=== PATIENT | male | born 1975 | race Caucasian/White ===

== ENCOUNTER 2016-10-11 09:37 | Emergency (ER) | payer OTHER ==
[~2016-10-11 09:37] MED LIST: /AUGM875TA; EXCEDRINE MIGRAINE; NITR0.4S; [UNRECOGNIZED DRUG - OTHER]
[2016-10-11] MEDS ORDERED: KETOROLAC 30 MG/ML VIAL (J1885) As Ordered ONE (11:45)
--- NOTE | 2016-10-11 15:12 | REP ---
MRI LUMBAR SPINE WITHOUT CONTRAST: HISTORY: Back pain. Decreased signal intensity on T2-weighted images is present in the L2-3 through L5-S1 intervertebral discs. The discs are decreased in height. These findings are consistent with disc degeneration. A diffuse disc bulge is present at the L1-2 level. There is hypertrophy of the ligamenta flava and posterior articulating facets. These findings produce minimal central canal stenosis. The L1 nerves exit the neural foramina without compression. A diffuse disc bulge is present at the L2-3 level. There is hypertrophy of the ligamenta and posterior articulating facets. These findings produce mild central canal stenosis. A small left intraforaminal disc protrusion is present. There is compression of the left L2 nerve in the neural foramen. The right L2 nerve exits the neural foramen without compression. A diffuse disc bulge is present at the L3-4 level. There is hypertrophy of the ligamenta flava and posterior articulating facets. These findings produce severe central canal stenosis. A small left intraforaminal disc protrusion is present. There is posterolateral displacement of the left L3 nerve distal to the neural foramen. The right L3 nerve exits the neural foramen without compression. A diffuse disc bulge and small central disc extrusion are present at the L4-5 level. There is inferior migration of disc material. There is hypertrophy of the ligamenta flava and posterior articulating facets. These findings produce moderate central canal stenosis. The L4 nerves exit the neural foramina without compression. A diffuse disc bulge and small disc extrusion central and eccentric to the left are present at the L5-S1 level. There is inferior migration of disc material. There is minimal compression of the thecal sac and left S1 nerve as it exits the thecal sac. There is hypertrophy of the posterior articulating facets. The L5 nerves exit the neural foramina without compression. The conus medullaris is normal in appearance terminating at the level of the T12-L1 intervertebral disc. Increased signal intensity on T2-weighted images is present in endplates of the L4 through S1 vertebral bodies. This represents degenerative change. IMPRESSION: 1. Minimal central canal stenosis at the L1-2 level secondary to disc bulge, ligamentous and facet hypertrophy. 2. Mild central canal stenosis at the L2-3 level secondary to disc bulge, ligamentous and facet hypertrophy. A small left intraforaminal disc protrusion is present. There is compression of the left L2 nerve in the neural foramen. 3. Severe central canal stenosis at the L3-4 level secondary to disc bulge, ligamentous and facet hypertrophy. A small left intraforaminal disc protrusion is present. There is posterolateral displacement of the left L3 nerve distal to the neural foramen. 4. Moderate central canal stenosis at the L4-5 level secondary to disc bulge, disc extrusion, ligamentous and facet hypertrophy. 5. Diffuse disc bulge and small disc extrusion at the L5-S1 level with minimal compression of the thecal sac and left S1 nerve as it exits the thecal sac. Signed by Alexey Torres MD 10/11/2016 03:15 P
--- NOTE | 2016-10-11 16:12 | EDDOCDS ---
Physician Documentation [facility] Name: Edin Quigley Age: 41 yrs Sex: Male : 1975 Arrival Date: 10/11/2016 Time: 09:37 Bed I3 / M3 Private MD: Howie Melendez MD Disposition: 10/11/16 16:02 Discharged to Home/Self Care. Impression: Spinal stenosis, lumbar region - herniated disc L5-S1, Low back pain. - Condition is Stable. - Discharge Instructions: Back Pain, Adult, Herniated Disk, Sciatica. - Prescriptions for Ibuprofen 800 mg Oral Tablet - take 1 tablet by ORAL route every 8 hours As needed take with food; 30 tablet. [place] 5- 325 mg Oral Tablet - take 1 tablet by ORAL route every 6 hours As needed MDD: 4 tabs; 20 tablet. Cyclobenzaprine 10 mg Oral Tablet - take 1 tablet by ORAL route At bedtime As needed; 10 tablet. - Medication Reconciliation, Local Pharmacy Hours, Work Release Form - 5 day form. - Follow up: Andrea Weeks; When: Call to arrange an appointment; Reason: Recheck today's complaints, Continuance of care. Follow up: Ebony Merritt; When: As needed; Reason: Recheck today's complaints, Continuance of care. Follow up: Emergency Department; When: As needed; Reason: Worsening of conditions, severe pain, severe weakness of leg, numbness of groin, bowel or bladder dysfunction. - Problem is an acute exacerbation. - Symptoms have improved. Historical: - Allergies: No known drug Allergies; - Home Meds: 1. Excedrin Extra Strength 250-250-65 mg Oral tab 2 tablets (Last dose: 10/10/2016 19:00) - PMHx: Chronic Back pain; - PSHx: none; - Social history: Smoking status: Patient uses tobacco products, heavy tobacco smoker. No barriers to communication noted, The patient speaks fluent Montenegrin, Speaks appropriately for age. - Family history: Not pertinent. - : The pt / caregiver states he / she is not on anticoagulants. Home medication list is obtained from the patient. - Exposure Risk Screening:: None identified. Vital Signs: 10/11 09:39 BP 149 / 70 RA Sitting (auto/reg); Pulse 73; Resp 18; Temp 98.2(O); Pulse Ox 99% on jrd R/A; Weight 76.2 kg / 167.99 lbs (R); Height 5 ft. 9 in. (175.26 cm) (R); Pain 10/10; 15:01 BP 119 / 61; Pulse 58; Resp 20; Temp 95.1(T); Pulse Ox 99% on R/A; Pain 3/10; dsf 09:39 Body Mass Index 24.81 (76.20 kg, 175.26 cm) jrd MDM: 11:01 Undress patient appropriately for examination ordered. ar2 11:01 Misc. Nursing Order ordered. ar2 11:22 Financial registration complete. lg 11:26 IV Saline Lock ordered. ar2 11:26 ketorolac 30 mg IVP once ordered. ar2 11:26 Diazepam 5 mg IVP once ordered. ar2 11:26 MRI Screening Tool - Place on chart, inform RN ordered. ar2 11:27 -MRI-Spine, Lumbar without contrast Ordered. EDMS 11:50 MRI Screening Tool - Place on chart, inform RN complete. jc4 13:25 [facility] Payment Agreement was scanned into [employer] and attached to record. lg Administered Medications: 11:47 Drug: Diazepam 5 mg [diazepam 5 mg/mL injection syringe (1 mL)] Route: IVP; Site: left jc4 antecubital; 11:50 Drug: ketorolac 30 mg [ketorolac 30 mg/mL (1 mL) injection solution (1 mL)] Route: IVP; jc4 Site: left antecubital; Signatures: Dispatcher [employer] EDOK Royal Richardson, Reg Reg lg Julio C Edwards RN RN mlb1 Colt Ruiz PA-C PA-C ar2 Karla Rudd RN RN jc4 Mary Penaloza RN RN dsf The chart was reviewed and I authenticate all verbal orders and agree with the evaluation and treatment provided.Attachments: 13:25 [facility] Payment Agreement lg MTDD
--- NOTE | 2016-10-11 16:12 | EDDOCDS ---
Nurse's Notes [facility] Name: Edin Quigley Age: 41 yrs Sex: Male : 1975 Arrival Date: 10/11/2016 Time: 09:37 Bed I3 / M3 Private MD: Howie Melendez MD Diagnosis: Spinal stenosis, lumbar region-herniated disc L5-S1;Low back pain Presentation: 10/11 09:49 Presenting complaint: Patient states: "my back" has been getting worse. On going every mlb1 day for years per . While at work today pain became unbearable. Pain radiating from back into left buttock and out leg and toes. Acute neurological deficits are not present. Mechanism of Injury: No Mechanism of Injury. Adult Sepsis Screening: The patient does not have new or worsening altered mentation. Patient's respiratory rate is less than 22. Systolic blood pressure is greater than 100. Patient has a qSOFA score of 0- Negative Sepsis Screen. Suicide/Homicide risk assessment- the patient denies having any suicidal and/or homicidal ideations and does not present with any other emotional, behavioral or mental health complaints. Status: Patient is not a auto service representative or dependent. Transition of care: patient was not received from another setting of care. 09:49 Acuity: LELO Level 4 mlb1 09:49 Method Of Arrival: Walkin/Carried/Asstd mlb1 Triage Assessment: 09:52 General: Appears in no apparent distress, Behavior is appropriate for age, cooperative. mlb1 Pain: Location: back Pain currently is 10 out of 10 on a pain scale. Quality of pain is described as shooting, Is continuous. HIV screening NA for this visit Offered previously. Musculoskeletal: Reports unable to straighten back. Historical: - Allergies: No known drug Allergies; - Home Meds: 1. Excedrin Extra Strength 250-250-65 mg Oral tab 2 tablets (Last dose: 10/10/2016 19:00) - PMHx: Chronic Back pain; - PSHx: none; - Social history: Smoking status: Patient uses tobacco products, heavy tobacco smoker. No barriers to communication noted, The patient speaks fluent Peruvian, Speaks appropriately for age. - Family history: Not pertinent. - : The pt / caregiver states he / she is not on anticoagulants. Home medication list is obtained from the patient. - Exposure Risk Screening:: None identified. Screenin:48 Screening information is obtained from the patient. Fall risk: No risks identified. jc4 Assistance ADL's: requires no assistance with activities of daily living. Abuse/DV Screen: The patient / caregiver reports he/she is: not in a situation that causes fear, pain or injury. Nutritional screening: No deficits noted. Advance Directives: Currently, there is no health care proxy. There is no active DNR order. There is no living will. There is no Power of Receptionist Telephone Operator. home support is adequate. Assessment: 11:48 General: Appears uncomfortable, Behavior is anxious. Pain:. ja5 11:50 General: Appears uncomfortable. Pain: Pain currently is 10 out of 10 on a pain scale. jc4 Neurological: Level of Consciousness is awake, alert, Oriented to person, place, time. Respiratory: Airway is patent Respiratory effort is even, unlabored, Respiratory pattern is regular, symmetrical. Derm: Skin is pink, warm & dry. Musculoskeletal: Circulation, motion, and sensation intact Reports pain in low back area. 14:17 General: Pt remains in MRI at this time. jc4 15:02 Adult Sepsis Screening: The patient does not have new or worsening altered mentation. dsf Patient's respiratory rate is less than 22. Systolic blood pressure is greater than 100. Patient has a qSOFA score of 0- Negative Sepsis Screen. General: Appears in no apparent distress, comfortable, Behavior is appropriate for age, cooperative. Pain: Location: low back area, left low back, left mid back and right mid back Pain currently is 3 out of 10 on a pain scale. Quality of pain is described as sharp. Neurological: Level of Consciousness is awake, alert, Oriented to person, place, time. Cardiovascular: No deficits noted. Respiratory: No deficits noted. Derm: Skin is pink, warm & dry. 16:10 General: Appears in no apparent distress, comfortable, Behavior is appropriate for age, dsf cooperative. Pain: Pain currently is 3 out of 10 on a pain scale. Neurological: Level of Consciousness is awake, alert. Cardiovascular: Capillary refill < 3 seconds. Respiratory: Airway is patent Respiratory effort is even, unlabored, Respiratory pattern is regular, symmetrical. Derm: Skin is pink, warm & dry. Vital Signs: 09:39 BP 149 / 70 RA Sitting (auto/reg); Pulse 73; Resp 18; Temp 98.2(O); Pulse Ox 99% on jrd R/A; Weight 76.2 kg (R); Height 5 ft. 9 in. (175.26 cm) (R); Pain 10/10; 15:01 BP 119 / 61; Pulse 58; Resp 20; Temp 95.1(T); Pulse Ox 99% on R/A; Pain 3/10; dsf 09:39 Body Mass Index 24.81 (76.20 kg, 175.26 cm) [facility] Vitals: 09:39 Log In Time: October 11, 2016 at 09:20. d ED Course: 09:39 Patient visited by Dillan Pacheco PCA. jrd 09:39 Howie Melendez is Private Physician. jrd 09:39 Patient moved to Waiting jrd 09:41 Patient visited by Dillan Pacheco PCA. jrd 09:41 Patient moved to Pre RCE jrd 09:51 Triage Initiated mlb1 10:42 Patient moved to Triage 1 ct3 10:57 Colt Ruiz PA-C is PHCP. ar2 10:57 Srinivasa Koroma MD is Attending Physician. ar2 10:57 Patient visited by Colt Ruiz PA-C. ar2 11:04 Patient moved to PR2 / 26 ct3 11:31 Patient moved to PR1 / 25 ttb 11:32 Karla Rudd, RN is Primary Nurse. ttb 11:32 Kortney Gillis,RN is Primary Nurse. ttb 11:32 Patient moved to I3 / M3 ttb 11:48 The patient / caregiver is instructed regarding the plan of care and ED course. jc4 11:48 Inserted saline lock: 20 gauge in left antecubital area. ja5 11:49 Patient visited by Kortney Gillis,JAVI. ja5 13:08 Patient moved to MRI dsf 13:25 [facility] Payment Agreement was scanned into [employer] and attached to record. lg 15:01 Patient moved to I3 / M3 dsf 15:02 Patient visited by Mary Penaloza,RN. dsf 15:33 -MRI-Spine, Lumbar without contrast Returned. EDMS 16:00 Andrea Weeks is Referral Physician. ar2 16:01 Ebony Merritt is Referral Physician. ar2 16:03 No procedures done that require assistance. dsf 16:10 Discontinued lock intact, bleeding controlled, pressure dressing applied, No dsf redness/swelling at site. Administered Medications: 11:47 Drug: Diazepam 5 mg [diazepam 5 mg/mL injection syringe (1 mL)] Route: IVP; Site: left jc4 antecubital; 11:50 Drug: ketorolac 30 mg [ketorolac 30 mg/mL (1 mL) injection solution (1 mL)] Route: IVP; jc4 Site: left antecubital; Order Results: Radiology Order: -MRI-Spine, Lumbar without contrast Test: -MRI-Spine, Lumbar without contrast REASON FOR EXAMINATION: back pain, weakness/numbness left leg; MRI LUMBAR SPINE WITHOUT CONTRAST:; ; HISTORY: Back pain.; ; Decreased signal intensity on T2-weighted images is present in the L2-3 through; L5-S1 intervertebral discs. The discs are decreased in height. These findings are; consistent with disc degeneration.; ; A diffuse disc bulge is present at the L1-2 level. There is hypertrophy of the; ligamenta flava and posterior articulating facets. These findings produce minimal; central canal stenosis. The L1 nerves exit the neural foramina without; compression.; ; A diffuse disc bulge is present at the L2-3 level. There is hypertrophy of the; ligamenta and posterior articulating facets. These findings produce mild central; canal stenosis. A small left intraforaminal disc protrusion is present. There is; compression of the left L2 nerve in the neural foramen. The right L2 nerve exits; the neural foramen without compression.; ; A diffuse disc bulge is present at the L3-4 level. There is hypertrophy of the; ligamenta flava and posterior articulating facets. These findings produce severe; central canal stenosis. A small left intraforaminal disc protrusion is present.; There is posterolateral displacement of the left L3 nerve distal to the neural; foramen. The right L3 nerve exits the neural foramen without compression.; ; A diffuse disc bulge and small central disc extrusion are present at the L4-5; level. There is inferior migration of disc material. There is hypertrophy of the; ligamenta flava and posterior articulating facets. These findings produce; moderate central canal stenosis. The L4 nerves exit the neural foramina without; compression.; ; A diffuse disc bulge and small disc extrusion central and eccentric to the left; are present at the L5-S1 level. There is inferior migration of disc material.; There is minimal compression of the thecal sac and left S1 nerve as it exits the; thecal sac. There is hypertrophy of the posterior articulating facets. The L5; nerves exit the neural foramina without compression.; ; The conus medullaris is normal in appearance terminating at the level of the; T12-L1 intervertebral disc. Increased signal intensity on T2-weighted images is; present in endplates of the L4 through S1 vertebral bodies. This represents; degenerative change.; ; IMPRESSION:; ; 1. Minimal central canal stenosis at the L1-2 level secondary to disc bulge,; ligamentous and facet hypertrophy.; ; 2. Mild central canal stenosis at the L2-3 level secondary to disc bulge,; ligamentous and facet hypertrophy. A small left intraforaminal disc protrusion is; present. There is compression of the left L2 nerve in the neural foramen.; ; 3. Severe central canal stenosis at the L3-4 level secondary to disc bulge,; ligamentous and facet hypertrophy. A small left intraforaminal disc protrusion is; present. There is posterolateral displacement of the left L3 nerve distal to the; neural foramen.; ; 4. Moderate central canal stenosis at the L4-5 level secondary to disc bulge,; disc extrusion, ligamentous and facet hypertrophy.; ; 5. Diffuse disc bulge and small disc extrusion at the L5-S1 level with minimal; compression of the thecal sac and left S1 nerve as it exits the thecal sac.; ; ; Signed by; Alexey Torres MD 10/11/2016 03:15 P; Outcome: 15:02 MRI Study completed. dsf 16:02 Discharge ordered by Provider. ar2 16:10 Discharge Assessment: Patient awake, alert and oriented x 3. No cognitive and/or dsf functional deficits noted. Patient verbalized understanding of disposition instructions. patient administered narcotics - yes. Pt provided with safe discharge. The following High Risk Discharge criteria are identified: None. Discharged to home ambulatory, with significant other. Condition: stable. Discharge instructions given to patient, significant other, Instructed on discharge instructions, follow up and referral plans. medication usage, no driving heavy equipment, Demonstrated understanding of instructions, medications, Pt was receptive of discharge instructions/ teaching. Prescriptions given X 3, Work note provided to patient. Property sent home with patient. 16:11 Patient left the ED. dsf Signatures: Dispatcher [employer] EDRoyal Akhtar, Norbert Reg lg Jerry, Julio C Ruff, RN RN mlb1 Colt Ruiz PA-C PAKarla Preston, RN RN jc4 Marry Rogers, DEPARTMENT HEAD DEPARTMENT HEAD ct3 Mary Penaloza,RN RN dsf Kimberlee Patel RN RN ttb Dillan Pacheco, DEPARTMENT HEAD DEPARTMENT HEAD jrd Kortney Gillis,RN RN ja5 MTDD
--- NOTE | 2016-10-13 17:13 | EDDOCDS ---
Nurse's Notes [facility] Name: Edin Quigley Age: 41 yrs Sex: Male : 1975 Arrival Date: 10/11/2016 Time: 09:37 Bed I3 / M3 Private MD: Howie Melendez MD Diagnosis: Spinal stenosis, lumbar region-herniated disc L5-S1;Low back pain Presentation: 10/11 09:49 Presenting complaint: Patient states: "my back" has been getting worse. On going every mlb1 day for years per . While at work today pain became unbearable. Pain radiating from back into left buttock and out leg and toes. Acute neurological deficits are not present. Mechanism of Injury: No Mechanism of Injury. Adult Sepsis Screening: The patient does not have new or worsening altered mentation. Patient's respiratory rate is less than 22. Systolic blood pressure is greater than 100. Patient has a qSOFA score of 0- Negative Sepsis Screen. Suicide/Homicide risk assessment- the patient denies having any suicidal and/or homicidal ideations and does not present with any other emotional, behavioral or mental health complaints. Status: Patient is not a director patient financial services or dependent. Transition of care: patient was not received from another setting of care. 09:49 Acuity: LELO Level 4 mlb1 09:49 Method Of Arrival: Walkin/Carried/Asstd mlb1 Triage Assessment: 09:52 General: Appears in no apparent distress, Behavior is appropriate for age, cooperative. mlb1 Pain: Location: back Pain currently is 10 out of 10 on a pain scale. Quality of pain is described as shooting, Is continuous. HIV screening NA for this visit Offered previously. Musculoskeletal: Reports unable to straighten back. Historical: - Allergies: No known drug Allergies; - Home Meds: 1. Excedrin Extra Strength 250-250-65 mg Oral tab 2 tablets (Last dose: 10/10/2016 19:00) - PMHx: Chronic Back pain; - PSHx: none; - Social history: Smoking status: Patient uses tobacco products, heavy tobacco smoker. No barriers to communication noted, The patient speaks fluent [place]ib[place]ian, Speaks appropriately for age. - Family history: Not pertinent. - : The pt / caregiver states he / she is not on anticoagulants. Home medication list is obtained from the patient. - Exposure Risk Screening:: None identified. Screenin:48 Screening information is obtained from the patient. Fall risk: No risks identified. jc4 Assistance ADL's: requires no assistance with activities of daily living. Abuse/DV Screen: The patient / caregiver reports he/she is: not in a situation that causes fear, pain or injury. Nutritional screening: No deficits noted. Advance Directives: Currently, there is no health care proxy. There is no active DNR order. There is no living will. There is no Power of Household Cook. home support is adequate. Assessment: 11:48 General: Appears uncomfortable, Behavior is anxious. Pain:. ja5 11:50 General: Appears uncomfortable. Pain: Pain currently is 10 out of 10 on a pain scale. jc4 Neurological: Level of Consciousness is awake, alert, Oriented to person, place, time. Respiratory: Airway is patent Respiratory effort is even, unlabored, Respiratory pattern is regular, symmetrical. Derm: Skin is pink, warm & dry. Musculoskeletal: Circulation, motion, and sensation intact Reports pain in low back area. 14:17 General: Pt remains in MRI at this time. jc4 15:02 Adult Sepsis Screening: The patient does not have new or worsening altered mentation. dsf Patient's respiratory rate is less than 22. Systolic blood pressure is greater than 100. Patient has a qSOFA score of 0- Negative Sepsis Screen. General: Appears in no apparent distress, comfortable, Behavior is appropriate for age, cooperative. Pain: Location: low back area, left low back, left mid back and right mid back Pain currently is 3 out of 10 on a pain scale. Quality of pain is described as sharp. Neurological: Level of Consciousness is awake, alert, Oriented to person, place, time. Cardiovascular: No deficits noted. Respiratory: No deficits noted. Derm: Skin is pink, warm & dry. 16:10 General: Appears in no apparent distress, comfortable, Behavior is appropriate for age, dsf cooperative. Pain: Pain currently is 3 out of 10 on a pain scale. Neurological: Level of Consciousness is awake, alert. Cardiovascular: Capillary refill < 3 seconds. Respiratory: Airway is patent Respiratory effort is even, unlabored, Respiratory pattern is regular, symmetrical. Derm: Skin is pink, warm & dry. Vital Signs: 09:39 BP 149 / 70 RA Sitting (auto/reg); Pulse 73; Resp 18; Temp 98.2(O); Pulse Ox 99% on jrd R/A; Weight 76.2 kg (R); Height 5 ft. 9 in. (175.26 cm) (R); Pain 10/10; 15:01 BP 119 / 61; Pulse 58; Resp 20; Temp 95.1(T); Pulse Ox 99% on R/A; Pain 3/10; dsf 09:39 Body Mass Index 24.81 (76.20 kg, 175.26 cm) [facility] Vitals: 09:39 Log In Time: October 11, 2016 at 09:20. d ED Course: 09:39 Patient visited by Dillan Pacheco PCA. jrd 09:39 Howie Melendez is Private Physician. jrd 09:39 Patient moved to Waiting jrd 09:41 Patient visited by Dillan Pacheco PCA. jrd 09:41 Patient moved to Pre RCE jrd 09:51 Triage Initiated mlb1 10:42 Patient moved to Triage 1 ct3 10:57 Colt Ruiz PA-C is PHCP. ar2 10:57 Srinivasa Koroma MD is Attending Physician. ar2 10:57 Patient visited by Colt Ruiz PA-C. ar2 11:04 Patient moved to PR2 / 26 ct3 11:31 Patient moved to PR1 / 25 ttb 11:32 Karla Rudd, RN is Primary Nurse. ttb 11:32 Kortney Gillis,RN is Primary Nurse. ttb 11:32 Patient moved to I3 / M3 ttb 11:48 The patient / caregiver is instructed regarding the plan of care and ED course. jc4 11:48 Inserted saline lock: 20 gauge in left antecubital area. ja5 11:49 Patient visited by Kortney Gillis,JAVI. ja5 13:08 Patient moved to MRI dsf 13:25 [facility] Payment Agreement was scanned into [employer] and attached to record. lg 15:01 Patient moved to I3 / M3 dsf 15:02 Patient visited by Mary Penaloza,RN. dsf 15:33 -MRI-Spine, Lumbar without contrast Returned. EDMS 16:00 Andrea Weeks is Referral Physician. ar2 16:01 Ebony Merritt is Referral Physician. ar2 16:03 No procedures done that require assistance. dsf 16:10 Discontinued lock intact, bleeding controlled, pressure dressing applied, No dsf redness/swelling at site. 10/12 09:21 T-Sheet-- Draft Copy was scanned into [employer] and attached to record. gb 09:21 Radiology Report was scanned into [employer] and attached to record. gb Administered Medications: 10/11 11:47 Drug: Diazepam 5 mg [diazepam 5 mg/mL injection syringe (1 mL)] Route: IVP; Site: left jc4 antecubital; 11:50 Drug: ketorolac 30 mg [ketorolac 30 mg/mL (1 mL) injection solution (1 mL)] Route: IVP; jc4 Site: left antecubital; Order Results: Radiology Order: -MRI-Spine, Lumbar without contrast Test: -MRI-Spine, Lumbar without contrast REASON FOR EXAMINATION: back pain, weakness/numbness left leg; MRI LUMBAR SPINE WITHOUT CONTRAST:; ; HISTORY: Back pain.; ; Decreased signal intensity on T2-weighted images is present in the L2-3 through; L5-S1 intervertebral discs. The discs are decreased in height. These findings are; consistent with disc degeneration.; ; A diffuse disc bulge is present at the L1-2 level. There is hypertrophy of the; ligamenta flava and posterior articulating facets. These findings produce minimal; central canal stenosis. The L1 nerves exit the neural foramina without; compression.; ; A diffuse disc bulge is present at the L2-3 level. There is hypertrophy of the; ligamenta and posterior articulating facets. These findings produce mild central; canal stenosis. A small left intraforaminal disc protrusion is present. There is; compression of the left L2 nerve in the neural foramen. The right L2 nerve exits; the neural foramen without compression.; ; A diffuse disc bulge is present at the L3-4 level. There is hypertrophy of the; ligamenta flava and posterior articulating facets. These findings produce severe; central canal stenosis. A small left intraforaminal disc protrusion is present.; There is posterolateral displacement of the left L3 nerve distal to the neural; foramen. The right L3 nerve exits the neural foramen without compression.; ; A diffuse disc bulge and small central disc extrusion are present at the L4-5; level. There is inferior migration of disc material. There is hypertrophy of the; ligamenta flava and posterior articulating facets. These findings produce; moderate central canal stenosis. The L4 nerves exit the neural foramina without; compression.; ; A diffuse disc bulge and small disc extrusion central and eccentric to the left; are present at the L5-S1 level. There is inferior migration of disc material.; There is minimal compression of the thecal sac and left S1 nerve as it exits the; thecal sac. There is hypertrophy of the posterior articulating facets. The L5; nerves exit the neural foramina without compression.; ; The conus medullaris is normal in appearance terminating at the level of the; T12-L1 intervertebral disc. Increased signal intensity on T2-weighted images is; present in endplates of the L4 through S1 vertebral bodies. This represents; degenerative change.; ; IMPRESSION:; ; 1. Minimal central canal stenosis at the L1-2 level secondary to disc bulge,; ligamentous and facet hypertrophy.; ; 2. Mild central canal stenosis at the L2-3 level secondary to disc bulge,; ligamentous and facet hypertrophy. A small left intraforaminal disc protrusion is; present. There is compression of the left L2 nerve in the neural foramen.; ; 3. Severe central canal stenosis at the L3-4 level secondary to disc bulge,; ligamentous and facet hypertrophy. A small left intraforaminal disc protrusion is; present. There is posterolateral displacement of the left L3 nerve distal to the; neural foramen.; ; 4. Moderate central canal stenosis at the L4-5 level secondary to disc bulge,; disc extrusion, ligamentous and facet hypertrophy.; ; 5. Diffuse disc bulge and small disc extrusion at the L5-S1 level with minimal; compression of the thecal sac and left S1 nerve as it exits the thecal sac.; ; ; Signed by; Alexey Torres MD 10/11/2016 03:15 P; Outcome: 15:02 MRI Study completed. dsf 16:02 Discharge ordered by Provider. ar2 16:10 Discharge Assessment: Patient awake, alert and oriented x 3. No cognitive and/or dsf functional deficits noted. Patient verbalized understanding of disposition instructions. patient administered narcotics - yes. Pt provided with safe discharge. The following High Risk Discharge criteria are identified: None. Discharged to home ambulatory, with significant other. Condition: stable. Discharge instructions given to patient, significant other, Instructed on discharge instructions, follow up and referral plans. medication usage, no driving heavy equipment, Demonstrated understanding of instructions, medications, Pt was receptive of discharge instructions/ teaching. Prescriptions given X 3, Work note provided to patient. Property sent home with patient. 16:11 Patient left the ED. dsf Signatures: Dispatcher [employer] EDMS Ashli Madison, Reg Reg gb Royal Richardson, Reg Reg lg Julio C Edwards RN RN mlb1 Colt Ruiz PA-C PATerrence ar2 Karla Rudd, RN RN jc4 Marry Rogers, ELECTRIC DRILL OPERATOR ELECTRIC DRILL OPERATOR ct3 Mary Penaloza,RN RN Kimberlee Gray, RN RN ttb Dillan Pacheco, ELECTRIC DRILL OPERATOR ELECTRIC DRILL OPERATOR jrd Kortney Gillis,RN RN ja5 Chart Complete MTDD
--- NOTE | 2016-10-13 17:13 | EDDOCDS ---
Physician Documentation [facility] Name: Edin Quigley Age: 41 yrs Sex: Male : 1975 Arrival Date: 10/11/2016 Time: 09:37 Bed I3 / M3 Private MD: Howie Melendez MD Disposition: 10/11/16 16:02 Discharged to Home/Self Care. Impression: Spinal stenosis, lumbar region - herniated disc L5-S1, Low back pain. - Condition is Stable. - Discharge Instructions: Back Pain, Adult, Herniated Disk, Sciatica. - Prescriptions for Ibuprofen 800 mg Oral Tablet - take 1 tablet by ORAL route every 8 hours As needed take with food; 30 tablet. [place] 5- 325 mg Oral Tablet - take 1 tablet by ORAL route every 6 hours As needed MDD: 4 tabs; 20 tablet. Cyclobenzaprine 10 mg Oral Tablet - take 1 tablet by ORAL route At bedtime As needed; 10 tablet. - Medication Reconciliation, Local Pharmacy Hours, Work Release Form - 5 day form. - Follow up: Andrea Weeks; When: Call to arrange an appointment; Reason: Recheck today's complaints, Continuance of care. Follow up: Ebony Merritt; When: As needed; Reason: Recheck today's complaints, Continuance of care. Follow up: Emergency Department; When: As needed; Reason: Worsening of conditions, severe pain, severe weakness of leg, numbness of groin, bowel or bladder dysfunction. - Problem is an acute exacerbation. - Symptoms have improved. Historical: - Allergies: No known drug Allergies; - Home Meds: 1. Excedrin Extra Strength 250-250-65 mg Oral tab 2 tablets (Last dose: 10/10/2016 19:00) - PMHx: Chronic Back pain; - PSHx: none; - Social history: Smoking status: Patient uses tobacco products, heavy tobacco smoker. No barriers to communication noted, The patient speaks fluent [place]ym[place], Speaks appropriately for age. - Family history: Not pertinent. - : The pt / caregiver states he / she is not on anticoagulants. Home medication list is obtained from the patient. - Exposure Risk Screening:: None identified. Vital Signs: 10/11 09:39 BP 149 / 70 RA Sitting (auto/reg); Pulse 73; Resp 18; Temp 98.2(O); Pulse Ox 99% on jrd R/A; Weight 76.2 kg / 167.99 lbs (R); Height 5 ft. 9 in. (175.26 cm) (R); Pain 10/10; 15:01 BP 119 / 61; Pulse 58; Resp 20; Temp 95.1(T); Pulse Ox 99% on R/A; Pain 3/10; dsf 09:39 Body Mass Index 24.81 (76.20 kg, 175.26 cm) jrd MDM: 11:01 Undress patient appropriately for examination ordered. ar2 11:01 Misc. Nursing Order ordered. ar2 11:22 Financial registration complete. lg 11:26 IV Saline Lock ordered. ar2 11:26 ketorolac 30 mg IVP once ordered. ar2 11:26 Diazepam 5 mg IVP once ordered. ar2 11:26 MRI Screening Tool - Place on chart, inform RN ordered. ar2 11:27 -MRI-Spine, Lumbar without contrast Ordered. EDMS 11:50 MRI Screening Tool - Place on chart, inform RN complete. jc4 13:25 [facility] Payment Agreement was scanned into [employer] and attached to record. 10/12 09:21 T-Sheet-- Draft Copy was scanned into [employer] and attached to record. gb 09:21 Radiology Report was scanned into [employer] and attached to record. gb Administered Medications: 10/11 11:47 Drug: Diazepam 5 mg [diazepam 5 mg/mL injection syringe (1 mL)] Route: IVP; Site: left 4 antecubital; 11:50 Drug: ketorolac 30 mg [ketorolac 30 mg/mL (1 mL) injection solution (1 mL)] Route: IVP; [facility] Site: left antecubital; Signatures: Dispatcher [employer] EDMS Ashli Madison, Reg Reg gb Royal Richardson, Reg Reg lg Julio C Edwards RN RN mlb1 Colt Ruiz PA-C PA-C ar2 Karla Rudd RN RN jc4 Mary Penaloza RN RN dsf The chart was reviewed and I authenticate all verbal orders and agree with the evaluation and treatment provided.Attachments: 13:25 [facility] [place] Agreement 10/12 09:21 T-Sheet-- Draft Copy gb Chart Complete MTDD
--- NOTE | 2016-10-13 17:13 | EDDOCDS ---
Physician Documentation [facility] Name: Edin Quigley Age: 41 yrs Sex: Male : 1975 Arrival Date: 10/11/2016 Time: 09:37 Bed I3 / M3 Private MD: Howie Melendez MD Disposition: 10/11/16 16:02 Discharged to Home/Self Care. Impression: Spinal stenosis, lumbar region - herniated disc L5-S1, Low back pain. - Condition is Stable. - Discharge Instructions: Back Pain, Adult, Herniated Disk, Sciatica. - Prescriptions for Ibuprofen 800 mg Oral Tablet - take 1 tablet by ORAL route every 8 hours As needed take with food; 30 tablet. [place] 5- 325 mg Oral Tablet - take 1 tablet by ORAL route every 6 hours As needed MDD: 4 tabs; 20 tablet. Cyclobenzaprine 10 mg Oral Tablet - take 1 tablet by ORAL route At bedtime As needed; 10 tablet. - Medication Reconciliation, Local Pharmacy Hours, Work Release Form - 5 day form. - Follow up: Andrea Weeks; When: Call to arrange an appointment; Reason: Recheck today's complaints, Continuance of care. Follow up: Ebony Merritt; When: As needed; Reason: Recheck today's complaints, Continuance of care. Follow up: Emergency Department; When: As needed; Reason: Worsening of conditions, severe pain, severe weakness of leg, numbness of groin, bowel or bladder dysfunction. - Problem is an acute exacerbation. - Symptoms have improved. Historical: - Allergies: No known drug Allergies; - Home Meds: 1. Excedrin Extra Strength 250-250-65 mg Oral tab 2 tablets (Last dose: 10/10/2016 19:00) - PMHx: Chronic Back pain; - PSHx: none; - Social history: Smoking status: Patient uses tobacco products, heavy tobacco smoker. No barriers to communication noted, The patient speaks fluent Malawian, Speaks appropriately for age. - Family history: Not pertinent. - : The pt / caregiver states he / she is not on anticoagulants. Home medication list is obtained from the patient. - Exposure Risk Screening:: None identified. Vital Signs: 10/11 09:39 BP 149 / 70 RA Sitting (auto/reg); Pulse 73; Resp 18; Temp 98.2(O); Pulse Ox 99% on jrd R/A; Weight 76.2 kg / 167.99 lbs (R); Height 5 ft. 9 in. (175.26 cm) (R); Pain 10/10; 15:01 BP 119 / 61; Pulse 58; Resp 20; Temp 95.1(T); Pulse Ox 99% on R/A; Pain 3/10; dsf 09:39 Body Mass Index 24.81 (76.20 kg, 175.26 cm) jrd MDM: 11:01 Undress patient appropriately for examination ordered. ar2 11:01 Misc. Nursing Order ordered. ar2 11:22 Financial registration complete. lg 11:26 IV Saline Lock ordered. ar2 11:26 ketorolac 30 mg IVP once ordered. ar2 11:26 Diazepam 5 mg IVP once ordered. ar2 11:26 MRI Screening Tool - Place on chart, inform RN ordered. ar2 11:27 -MRI-Spine, Lumbar without contrast Ordered. EDMS 11:50 MRI Screening Tool - Place on chart, inform RN complete. jc4 13:25 [facility] Payment Agreement was scanned into [employer] and attached to record. 10/12 09:21 T-Sheet-- Draft Copy was scanned into [employer] and attached to record. gb 09:21 Radiology Report was scanned into [employer] and attached to record. gb Administered Medications: 10/11 11:47 Drug: Diazepam 5 mg [diazepam 5 mg/mL injection syringe (1 mL)] Route: IVP; Site: left 4 antecubital; 11:50 Drug: ketorolac 30 mg [ketorolac 30 mg/mL (1 mL) injection solution (1 mL)] Route: IVP; [facility] Site: left antecubital; Signatures: Dispatcher [employer] EDMS Ashli Madison, Reg Reg gb Royal Richardson, Reg Reg lg Julio C Edwards RN RN mlb1 Colt Ruiz PA-C PA-C ar2 Karla Rudd RN RN jc4 Mary Penaloza RN RN dsf The chart was reviewed and I authenticate all verbal orders and agree with the evaluation and treatment provided.Attachments: 13:25 [facility] Payment Agreement 10/12 09:21 T-Sheet-- Draft Copy gb Chart Complete MTDD
== END 2016-10-11 16:11 | disposition home or self-care (01) ==
LOC: M ED 09:37
DX: M48.06 Spinal stenosis, lumbar region (principal); M54.17 Radiculopathy, lumbosacral region; M51.27 Other intervertebral disc displacement, lumbosacral region; F17.210 Nicotine dependence, cigarettes, uncomplicated
CPT/HCPCS: 72148; 96374; 96375; 99284; J1885; J3360

== ENCOUNTER → 2016-11-01 | Outpatient (REF) | payer OTHER ==
[2016-11-01 12:34] LABS: ALBUMIN 3.6 GM/DL (3.2-5.2); ALBUMIN/GLOBULIN RATIO 1.24 (1.00-1.93); ALKALINE PHOSPHATASE 106 U/L (45-117); ALT/SGPT 29 U/L (12-78); ANION GAP 8 MEQ/L (8-16); AST/SGOT 17 U/L (15-37); BILIRUBIN,TOTAL 0.3 MG/DL (0.2-1.0); BLOOD UREA NITROGEN 15 MG/DL (7-18); CALCIUM LEVEL 8.8 MG/DL (8.5-10.1); CARBON DIOXIDE LEVEL 28 MEQ/L (21-32); CHLORIDE LEVEL 105 MEQ/L (98-107); CHOLESTEROL LEVEL 203 MG/DL (<200); CREATININE FOR GFR 0.88 MG/DL (0.70-1.30); GLOMERULAR FILTRATION RATE > 60.0 (>60); GLUCOSE, FASTING 89 MG/DL (70-105); SODIUM LEVEL 141 MEQ/L (136-145); TOTAL PROTEIN 6.5 GM/DL (6.4-8.2); TRIGLYCERIDES LEVEL 143 MG/DL (<150)
[2016-11-01 18:22] LABS: MEAN CORPUSCULAR HEMOGLOBIN 31.1 pg (27.0-33.0); MEAN CORPUSCULAR HGB CONC 35.2 g/dl (32.0-36.5); MEAN CORPUSCULAR VOLUME 88.3 fl (80.0-96.0); RED CELL DISTRIBUTION WIDTH 13.2 % (11.5-14.5)
== END ==
LOC: M LABDRAW1 11:51
PROVIDERS: ATTEND Family Medicine
DX: Z13.29 Encounter for screening for other suspected endocrine disorder (principal); Z13.220 Encounter for screening for lipoid disorders

== ENCOUNTER → 2017-03-30 | Outpatient (CLI) | payer OTHER ==
--- NOTE | 2017-03-30 10:15 | REP ---
REASON: Back pain and radicular symptoms. COMPARISON: 10/11/2016. Once again, there is posterior disc space height loss and disc hydrational signal loss at every level but particularly at the L3-4 to L5-S1 level status quo. Modic type 2 end plate changes are again seen with Modic type 3 end plate changes posteriorly at L4-5 status quo. No abnormal signal has developed in the imaged portion of the spinal cord. There is no change in the marrow signal. At the L1-2 level, there is no change. There is a broad based annular bulge seen in conjunction with degenerative facet joint changes bilaterally and thickening of the ligamentum flava. Minimal anterior thecal sac compression is noted status quo. There is no disc extrusion or foraminal narrowing. At the L2-3 level, there is no significant change. There is a broad based annular bulge seen in conjunction with hypertrophic degenerative facet joint changes bilaterally with thickening of the ligamentum flava. Mild central canal stenosis is again noted. The small left intraforaminal disc protrusion seen on the prior exam is unchanged. No acute extrusion has developed. There is compression of the left L2 nerve within the foramen status quo. There is no right foraminal stenosis or evidence of an acute disc extrusion. At the L3-4 level, there is a large broad based annular bulge seen in conjunction with hypertrophic degenerative facet joint changes bilaterally and thickening of the ligamentum flava. This is causing severe central canal stenosis status quo. The small left intraforaminal disc protrusion seen previously is unchanged. Left L3 nerve displacement is again noted status quo. There is no right foraminal stenosis or evidence of an acute disc extrusion. At the L4-5 level, once again, there is a broad based annular bulge seen in conjunction with a central disc extrusion with inferior migration. Degenerative facet joint changes are again seen bilaterally with thickening of the ligamentum flava. Moderate central canal stenosis is again noted from the afore mentioned discogenic changes and degenerative facet joint changes status quo. There is no foraminal narrowing. At the L5-S1 level, once again, there is a broad based annular bulge seen in conjunction with a central, slightly left paracentral disc extrusion. There is inferior migration of the extruded disc material causing minimal compression of the anterior thecal sac. This is unchanged. Mild left S1 nerve compression is again noted status quo without evidence of L5 right foraminal stenosis. IMPRESSION: Multilevel discogenic changes with particular attention drawn to the L4-5 and L5-S1 levels and essentially no change from the prior exam as described above. Signed by Jong Doherty DO 03/30/2017 10:51 A
== END ==
LOC: M RAD 07:17
PROVIDERS: ATTEND Orthopaedic Surgery
DX: M47.26 Other spondylosis with radiculopathy, lumbar region (principal); M51.26 Other intervertebral disc displacement, lumbar region; M51.27 Other intervertebral disc displacement, lumbosacral region

== ENCOUNTER 2018-05-01 12:54 | Emergency (ER) | payer OTHER ==
[2018-05-01] MEDS: MORPHINE 4 MG/ML 1ML VIAL/SYRINGE (J2270) IM (15:29)
[2018-05-01] MEDS: diazePAM 5 MG TAB PO (15:29)
[2018-05-01] MEDS: ONDANSETRON 4 MG ORAL DISINTEGRATING TAB (Q0162 PER 1MG) PO (15:29)
== END 2018-05-01 16:11 | disposition home or self-care (01) ==
LOC: M ED 12:54
DX: S86.112A Strain of other muscle(s) and tendon(s) of posterior muscle group at lower leg level, left leg, initial encounter (principal); X50.0XXA Overexertion from strenuous movement or load, initial encounter; Y92.89 Other specified places as the place of occurrence of the external cause; E78.00 Pure hypercholesterolemia, unspecified; M51.9 Unspecified thoracic, thoracolumbar and lumbosacral intervertebral disc disorder; R51 Headache
CPT/HCPCS: J2270

== ENCOUNTER 2018-07-17 08:35 | Emergency (ER) | payer OTHER ==
[2018-07-17] MEDS: METHOCARBAMOL 500 MG TAB PO (09:08)
[2018-07-17] MEDS: KETOROLAC 60 MG/2 ML VIAL (J1885) IM (09:08)
== END 2018-07-17 10:03 | disposition home or self-care (01) ==
LOC: M ED 08:35
DX: M54.42 Lumbago with sciatica, left side (principal); M51.26 Other intervertebral disc displacement, lumbar region; M51.37 Other intervertebral disc degeneration, lumbosacral region; G89.29 Other chronic pain; F17.200 Nicotine dependence, unspecified, uncomplicated
CPT/HCPCS: J1885

== ENCOUNTER 2018-12-24 12:18 | Emergency (ER) | payer OTHER ==
[~2018-12-24] VITALS: Ht 175.3 cm; Wt 76.4 kg
[~2018-12-24 12:18] MED LIST changes: +MEDR4PAK PO; +PERC5TAB12 PO; +ROBA500T PO; +VALI5TAB PO; +ZOFR4TAB14 PO
[2018-12-24] MEDS ORDERED: EXCETAB33 PO (12:26)
[2018-12-24] MEDS ORDERED: KETOROLAC 60 MG/2 ML VIAL (J1885) IM ONE (13:00)
[2018-12-24] MEDS ORDERED: ZANA4TAB PO (13:28)
[2018-12-24] MEDS ORDERED: MOBI4TAB PO (13:28)
[2018-12-24] MEDS ORDERED: PRED20TA PO (13:28)
--- NOTE | 2018-12-24 13:29 | REP ---
Left shoulder series: Three views. History: Trauma. Comparison study: August 29, 2005. Findings: The left glenohumeral and acromioclavicular joints are normally aligned. Periarticular soft tissues are unremarkable. No fracture or subluxation is seen. Impression: Negative left shoulder radiographs. No fracture seen. Electronically Signed by Tiago Bruce MD 12/24/2018 01:19 P
[2018-12-24 13:45] VITALS: BP 121/64
== END 2018-12-24 13:47 | disposition home or self-care (01) ==
LOC: M ED 12:18
DX: M25.512 Pain in left shoulder (principal); X50.0XXA Overexertion from strenuous movement or load, initial encounter; Y92.59 Other trade areas as the place of occurrence of the external cause; Y99.0 Civilian activity done for income or pay; Z79.82 Long term (current) use of aspirin
CPT/HCPCS: 73030; 96372; 99283; J1885

== ENCOUNTER → 2019-07-28 | Outpatient (REF) | payer OTHER ==
[~2019-07-28] MED LIST changes: +EXCETAB33 PO; +MOBI4TAB PO; +PRED20TA PO; +ZANA4TAB PO
[2019-07-28 13:12] LABS: PLATELET COUNT, AUTOMATED 183 10^3/uL (150-450)
[2019-07-28 13:32] LABS: INR 0.94; PROTHROMBIN TIME 12.2 SECONDS (11.8-14.0)
[2019-07-28 13:33] LABS: PARTIAL THROMBOPLASTIN TIME 31.1 SECONDS (25.0-38.4)
== END ==
LOC: M LABDRAW1 12:44
PROVIDERS: ATTEND Physician Assistant
DX: M47.22 Other spondylosis with radiculopathy, cervical region (principal)

== ENCOUNTER → 2020-01-08 | Outpatient (CLI) | payer OTHER ==
[2020-01-08 10:08] LABS: BLOOD UREA NITROGEN 10 MG/DL (7-18); CREATININE FOR GFR 0.96 MG/DL (0.70-1.30); GLOMERULAR FILTRATION RATE > 60.0 (>60)
== END ==
LOC: M LAB 08:50
PROVIDERS: ATTEND Physical Medicine & Rehabilitation
DX: M48.02 Spinal stenosis, cervical region (principal)

== ENCOUNTER → 2020-08-07 | Outpatient (CLI) | payer OTHER ==
[2020-08-07 15:18] LABS: C REACTIVE PROTEIN QUANTITATIV < 0.30 MG/DL (0.00-0.30); RHEUMATOID FACTOR QUANT < 10.0 IU/ML (<15.0)
== END ==
LOC: M LAB 13:36
PROVIDERS: ATTEND Physician Assistant
DX: M47.22 Other spondylosis with radiculopathy, cervical region (principal)

== ENCOUNTER 2020-10-11 23:00 | Emergency (ER) | payer OTHER ==
[~2020-10-11] VITALS: Ht 175.3 cm; Wt 91.8 kg
[2020-10-12] MEDS ORDERED: METAL LOCK LOOP XX ONE (00:34)
[2020-10-12 02:43] VITALS: BP 127/72
== END 2020-10-12 02:45 | disposition home or self-care (01) ==
LOC: M ED 23:00
DX: F43.20 Adjustment disorder, unspecified (principal); F33.9 Major depressive disorder, recurrent, unspecified; Z79.82 Long term (current) use of aspirin; F17.210 Nicotine dependence, cigarettes, uncomplicated

== ENCOUNTER → 2021-02-03 | Outpatient (CLI) | payer OTHER | LOC: M LAB 14:48 | PROVIDERS: ATTEND Physical Medicine & Rehabilitation | DX: M47.22 Other spondylosis with radiculopathy, cervical region (principal) ==

== ENCOUNTER 2021-05-26 07:40 | Emergency (ER) | payer OTHER ==
[~2021-05-26] VITALS: Ht 175.3 cm; Wt 91.8 kg
[2021-05-26 07:40] VITALS: BP 134/86
[2021-05-26] MEDS ORDERED: ACET1TAB16 (07:55)
== END 2021-05-26 09:06 | disposition left against medical advice (07) ==
LOC: M ED 07:40
DX: Z53.29 Procedure and treatment not carried out because of patient's decision for other reasons (principal)

== ENCOUNTER → 2021-06-08 | Outpatient (CLI) | payer OTHER ==
[~2021-06-08] MED LIST changes: +ACET1TAB16
[2021-06-08 12:57] LABS: PLATELET COUNT, AUTOMATED 176 10^3/uL (150-450)
[2021-06-08 13:10] LABS: INR 0.92; PARTIAL THROMBOPLASTIN TIME 27.9 SECONDS (25.9-37.0); PROTHROMBIN TIME 12.8 SECONDS (12.7-14.5)
== END ==
LOC: M LAB 11:47
PROVIDERS: ATTEND Physical Medicine & Rehabilitation
DX: M47.22 Other spondylosis with radiculopathy, cervical region (principal)

== ENCOUNTER → 2022-11-09 | Outpatient (CLI) | payer OTHER ==
[~2022-11-09] MED LIST changes: -ACET1TAB16; +ACET300T48; +EXCETAB32 PO; -EXCETAB33 PO
[2022-11-09 09:08] LABS: HEMATOCRIT 50.9 % (42.0-52.0); HEMOGLOBIN 17.3 g/dl (13.5-17.5); MEAN CORPUSCULAR HEMOGLOBIN 30.2 pg (27.0-33.0); MEAN CORPUSCULAR VOLUME 88.8 fl (80.0-96.0); PLATELET COUNT, AUTOMATED 188 10^3/uL (150-450); RED BLOOD COUNT 5.73 10^6/uL (4.30-6.10); WHITE BLOOD COUNT 6.7 10^3/uL (4.0-10.0)
[2022-11-09 09:14] LABS: APPEARANCE, URINE CLEAR (CLEAR); BACTERIA, URINE AUTO NEGATIVE (NEGATIVE); BILIRUBIN, URINE AUTO NEGATIVE (NEGATIVE); BLOOD, URINE BLOOD NEGATIVE (NEGATIVE); COLOR, URINE YELLOW (YELLOW); GLUCOSE, URINE (UA) AUTO NEGATIVE (NEGATIVE); KETONE, URINE AUTO NEGATIVE (NEGATIVE); LEUKOCYTE ESTERASE, URINE AUTO NEGATIVE (NEGATIVE); MUCUS, URINE SMALL (NEGATIVE); NITRITE, URINE AUTO NEGATIVE (NEGATIVE); PROTEIN, URINE AUTO NEGATIVE (NEGATIVE); RBC, URINE AUTO 1 /HPF (0-3); SPECIFIC GRAVITY URINE AUTO 1.021 (1.002-1.035); SQUAMOUS EPITHELIAL CELL UR AU 1 /HPF (0-6); UROBILINOGEN, URINE AUTO 0.2 mg/dL (0.0-2.0); WBC, URINE AUTO 8 /HPF (0-3)
[2022-11-09 09:36] LABS: ALBUMIN 3.9 G/DL (3.2-5.2); ALKALINE PHOSPHATASE 134 U/L (46-116); ALT/SGPT 60 U/L (7.0-40); AST/SGOT 24 U/L (<34); BILIRUBIN,TOTAL 0.3 MG/DL (0.3-1.2); BLOOD UREA NITROGEN 18 MG/DL (9-23); CARBON DIOXIDE LEVEL 26 MMOL/L (20-31); CHLORIDE LEVEL 107 MMOL/L (98-107); CHOLESTEROL LEVEL 156 MG/DL (<200); CHOLESTEROL RISK RATIO 5.01 (<5); CREATININE FOR GFR 0.97 MG/DL (0.70-1.30); GLOMERULAR FILTRATION RATE > 60.0 (>60); GLUCOSE, FASTING 91 MG/DL (60-100); HDL CHOLESTEROL 31.1 MG/DL (>40); LDL CHOLESTEROL 90.5 MG/DL (<100); NON-HDL-C 124.9 MG/DL; POTASSIUM SERUM 4.3 MMOL/L (3.5-5.1); SODIUM LEVEL 141 MMOL/L (136-145); TRIGLYCERIDES LEVEL 172 MG/DL (<150)
[2022-11-09 09:37] LABS: THYROID STIMULATING HORMONE 4.571 uIU/ML (0.55-4.78)
[2022-11-09 09:38] LABS: TOTAL 25(OH) VITAMIN D 12.3 NG/ML (20.0-100.0); VITAMIN B12 LEVEL 371 PG/ML (211-911)
[2022-11-09 10:20] LABS: HEMOGLOBIN A1c 5.4 % (4.0-6.0)
== END ==
LOC: M LAB 07:55
PROVIDERS: ATTEND Internal Medicine
DX: E78.5 Hyperlipidemia, unspecified (principal); E66.9 Obesity, unspecified; Z79.899 Other long term (current) drug therapy

== ENCOUNTER → 2022-12-12 | Outpatient (CLI) | payer OTHER ==
[2022-12-12 14:56] LABS: ALBUMIN 3.9 G/DL (3.2-5.2); BILIRUBIN,DIRECT 0.2 MG/DL (<0.4); BILIRUBIN,TOTAL 0.5 MG/DL (0.3-1.2); TOTAL PROTEIN 6.9 G/DL (5.7-8.2)
== END ==
LOC: M LAB 14:03
PROVIDERS: ATTEND Internal Medicine
DX: R94.5 Abnormal results of liver function studies (principal)

== ENCOUNTER → 2023-12-21 | Outpatient (CLI) | payer OTHER | LOC: M RAD 16:45 | PROVIDERS: ATTEND Physician Assistant | DX: Z87.891 Personal history of nicotine dependence (principal) ==

== ENCOUNTER → 2024-04-11 | Outpatient (REF) | payer OTHER ==
[2024-04-11 14:33] LABS: THYROID STIMULATING HORMONE 5.994 uIU/ML (0.55-4.78); TOTAL 25(OH) VITAMIN D 62.2 NG/ML (20.0-100.0)
[2024-04-11 14:34] LABS: ALBUMIN 3.8 G/DL (3.2-5.2); ALKALINE PHOSPHATASE 118 U/L (46-116); ALT/SGPT 38 U/L (7.0-40); AST/SGOT 15 U/L (<34); BILIRUBIN,TOTAL 0.3 MG/DL (0.3-1.2); BLOOD UREA NITROGEN 12 MG/DL (9-23); CALCIUM LEVEL 9.1 MG/DL (8.5-10.1); CARBON DIOXIDE LEVEL 24 MMOL/L (20-31); CHLORIDE LEVEL 110 MMOL/L (98-107); CHOLESTEROL LEVEL 208 MG/DL (<200); CHOLESTEROL RISK RATIO 7.42 (<5); CREATININE FOR GFR 0.88 MG/DL (0.70-1.30); GLOMERULAR FILTRATION RATE > 60.0 (>56); GLUCOSE, FASTING 103 MG/DL (60-100); LDL CHOLESTEROL 132.4 MG/DL (<100); SODIUM LEVEL 141 MMOL/L (136-145); TRIGLYCERIDES LEVEL 238 MG/DL (<150)
== END ==
LOC: M LAB REF 12:21
PROVIDERS: ATTEND Physician Assistant
DX: I10 Essential (primary) hypertension (principal); E55.9 Vitamin D deficiency, unspecified; E78.5 Hyperlipidemia, unspecified

== ENCOUNTER → 2024-04-19 | Outpatient (CLI) | payer OTHER | LOC: M RAD 12:17 | PROVIDERS: ATTEND Physician Assistant | DX: M25.561 Pain in right knee (principal) ==